=== PATIENT | female | born 2005 | race Hispanic/Latino ===

== ENCOUNTER 2023-05-13 13:04 | Day surgery (SDC) | payer OTHER ==
[2023-05-13] MEDS ORDERED: Ondansetron PF 4 MG/2 ML Vial IVP PRN (13:37)
[2023-05-13] MEDS ORDERED: hydrALAZINE 20 MG/ML VIAL SLOW IVP PRN (13:37)
[2023-05-13] MEDS ORDERED: Promethazine HCl 25 MG/ML VIAL IM PRN (13:37)
[2023-05-13 13:38] VITALS: BMI 43.0
[2023-05-13 14:37] LABS: Bilirubin Neg (Negative); Blood, Urine 25 (Negative); Clarity Clear (Clear); Glucose, Urine (Dipstick) Normal (Negative); Ketone, Urine Negative (Negative); Leukocyte Negative (Negative); Nitrite Negative (Negative); Protein, Urine (Dipstick) 15 mg/dl (Neg-Trace); Specific Gravity, Urine 1.015 (1.005-1.030); Urobilinogen Normal mg/dL (Less than 2); pH, Urine 6.5 (5.0-9.0)
[2023-05-13 14:58] LABS: Bacteria/HPF Rare-Few HPF (None Seen); CAUTI Indications for Culture Dysuria,urgency,freq; Mucous/LPF 2+ LPF (<2+); Squamous Epithelial 0-3 HPF (0-3); Urine Culture Reflex No No; WBC/HPF 0-3 HPF (0-3)
== END 2023-05-13 14:23 | disposition home or self-care (01) ==
LOC: CSHLD/OP 13:04
PROVIDERS: ATTEND Family Medicine
DX: O99.612 Diseases of the digestive system complicating pregnancy, second trimester (principal); K59.00 Constipation, unspecified; Z3A.25 25 weeks gestation of pregnancy
CPT/HCPCS: 81001

== ENCOUNTER 2023-08-02 15:20 | Day surgery (SDC) | payer OTHER ==
[2023-08-02] MEDS ORDERED: hydrALAZINE 20 MG/ML VIAL SLOW IVP PRN (15:54)
[2023-08-02 15:59] VITALS: BMI 42.4
[2023-08-02] MEDS ORDERED: Lactated Ringer's 1,000 ML IV SCH (16:00)
[2023-08-02] MEDS ORDERED: Acetaminophen 500 MG TAB PO SCH (16:45)
== END 2023-08-02 18:50 | disposition home health service (06) ==
LOC: CSHERS 15:20 → CSHLD/OP 18:50
PROVIDERS: ATTEND Family Medicine
DX: O47.1 False labor at or after 37 completed weeks of gestation (principal); O99.213 Obesity complicating pregnancy, third trimester; E66.9 Obesity, unspecified; Z90.89 Acquired absence of other organs; Z3A.37 37 weeks gestation of pregnancy
CPT/HCPCS: 96360; 99283

== ENCOUNTER 2023-08-17 03:51 | Day surgery (SDC) | payer OTHER ==
[2023-08-17] MEDS ORDERED: hydrALAZINE 20 MG/ML VIAL SLOW IVP PRN (04:02)
[2023-08-17 04:13] VITALS: BMI 42.4
[2023-08-17 04:48] LABS: Fetal Membranes Rupture No Membranes Rupture (No Rupture)
== END 2023-08-17 08:00 | disposition home or self-care (01) ==
LOC: CSHLD/OP 03:51
PROVIDERS: ATTEND Family Medicine
DX: O99.891 Other specified diseases and conditions complicating pregnancy (principal); O99.213 Obesity complicating pregnancy, third trimester; Z90.89 Acquired absence of other organs; Z79.899 Other long term (current) drug therapy; Z3A.39 39 weeks gestation of pregnancy
CPT/HCPCS: 84112; 99283

== ENCOUNTER 2023-08-19 19:09 | Inpatient (IN) | payer OTHER ==
[2023-08-19 19:36] VITALS: BMI 43.0
[2023-08-19] MEDS ORDERED: Promethazine HCl 25 MG/ML VIAL IM PRN (20:02)
[2023-08-19] MEDS ORDERED: fentaNYL 50 mcg/mL 1 mL Vial SLOW IVP PRN (20:02)
[2023-08-19] MEDS ORDERED: Lidocaine 1% (PF) 30 ML VIAL SC PRN (20:02)
[2023-08-19] MEDS ORDERED: hydrALAZINE 20 MG/ML VIAL SLOW IVP PRN (20:02)
[2023-08-19] MEDS ORDERED: Acetaminophen 500 MG TAB PO PRN (20:02)
[2023-08-19] MEDS ORDERED: Ondansetron PF 4 MG/2 ML Vial IVP PRN (20:02)
[2023-08-19] MEDS ORDERED: Carboprost 250 MCG/ML AMP IM PRN (20:02)
[2023-08-19] MEDS ORDERED: Methylergonovine 0.2 MG/ML VIAL IM PRN (20:02)
[2023-08-19] MEDS ORDERED: Misoprostol 200 MCG TAB PR PRN (20:02)
[2023-08-19] MEDS ORDERED: Tranexamic Acid 1,000 MG/10 ML VIAL IVP PRN (20:02)
[2023-08-19] MEDS ORDERED: Diphenoxylate HCl/Atropine Tablet PO PRN (20:02)
[2023-08-19] MEDS ORDERED: HYDROcodone/Acetaminophen 5/325 mg Tablet PO PRN (20:05)
[2023-08-19] MEDS ORDERED: Ibuprofen 800 MG TAB PO PRN (20:05)
[2023-08-19] MEDS ORDERED: Oxytocin 30 units/NS 500 ML 500 ML IV SCH ×3 (20:15)
[2023-08-19] MEDS: Misoprostol 100 MCG TAB VAG SCH (20:35)
[2023-08-19 20:37] LABS: Hematocrit 38.3 % (34.9-44.5); Hemoglobin 12.9 g/dL (12.0-15.5); Mean Corpuscular HGB CONC 33.7 g/dL (32.0-36.0); Mean Corpuscular Hemoglobin 28.2 pg (27.0-33.0); Mean Corpuscular Volume 83.8 fl (81.6-98.3); Mean Platelet Volume 11.8 fl (7.4-10.4); Platelet Count 346 10x3/uL (150-450); RBC Distribution Width 14.2 % (11.5-14.5); Red Blood Cell (RBC) Count 4.57 10x6/uL (3.90-5.03); White Blood Cell (WBC) Count 7.9 10x3/uL (3.5-10.5)
[2023-08-19 22:13] LABS: HBSAg Index 0.16 S/CO (0-0.99); Hep B Surf Ag - L&D Non-Reactive S/CO (NonReactive)
[2023-08-19 22:14] LABS: Syphilis Antibody Nonreactive (Nonreactive); Syphilis Antibody Index 0.13 S/CO (<1.00 Non-Reactive)
[2023-08-20] MEDS: Misoprostol 100 MCG TAB VAG SCH ×3 (00:03→07:41)
[2023-08-20] MEDS ORDERED: Penicillin G Potassium 5 MILL.UNITS in Sodium Chloride 0.9% 100 ML IVPB SCH (02:00)
[2023-08-20] MEDS: Penicillin G 2.5 MILL.units 2.5 MILL.UNITS in Premix 1 BAG IVPB SCH ×3 (07:37→18:21)
[2023-08-20] MEDS ORDERED: Bupivacaine 0.25% HCL 30 ML VIAL ONE (10:00)
[2023-08-20] MEDS ORDERED: fentaNYL/Ropivacaine Epidural 100 ML ONE (13:58)
[2023-08-20] MEDS ORDERED: Naloxone HCl 0.4 mg/ml Vial IVP PRN ×4 (14:37→20:38)
[2023-08-20] MEDS ORDERED: Promethazine HCl 25 MG/ML VIAL IM PRN ×2 (14:37→20:38)
[2023-08-20] MEDS ORDERED: Ondansetron PF 4 MG/2 ML Vial IVP PRN ×3 (14:37→20:38)
[2023-08-20] MEDS ORDERED: ePHEDrine Sulfate 50 MG/10 ML VIAL SLOW IVP PRN (14:37)
[2023-08-20] MEDS ORDERED: Acetaminophen 325 MG TAB PO PRN (14:37)
[2023-08-20] MEDS ORDERED: Moisturizing Cream (Eucerin) 113 GM JAR TOP PRN ×2 (14:37→20:38)
[2023-08-20] MEDS ORDERED: Lactated Ringer's 500 ML IV PRN (14:37)
[2023-08-20] MEDS ORDERED: diphenhydrAMINE 50 MG/ML VIAL IVP PRN ×2 (14:37→20:38)
[2023-08-20] MEDS ORDERED: fentaNYL 2 mcg/Ropivacaine 0.2% Epidural 100 ML CADD EPIDURAL SCH (14:45)
[2023-08-20] MEDS ORDERED: Communication Order-Pharmacy FS SCH ×2 (14:45→20:45)
[2023-08-20] MEDS ORDERED: CEFAZOLIN 2 GM VIAL ONE (20:33)
[2023-08-20] MEDS ORDERED: Famotidine/PF 20 mg/2ml Vial SLOW IVP PRN (20:36)
[2023-08-20] MEDS ORDERED: Bicitra 30 ML UDCUP PO PRN (20:36)
[2023-08-20] MEDS ORDERED: Ketorolac Tromethamine 30 MG (1 mL) VIAL IVP PRN (20:38)
[2023-08-20] MEDS ORDERED: Naloxone HCl 0.4 mg/ml Vial IV PRN (20:38)
[2023-08-20] MEDS ORDERED: Morphine 4 MG/ML VIAL SLOW IVP PRN (20:38)
[2023-08-20] MEDS ORDERED: Promethazine HCl 25 MG SUPP PR PRN (20:38)
[2023-08-20] MEDS ORDERED: Meperidine HCl/PF 25 MG (1 mL) VIAL SLOW IVP PRN (20:38)
[2023-08-20] MEDS ORDERED: fentaNYL 50 mcg/mL 1 mL Vial SLOW IVP PRN (20:38)
[2023-08-20] MEDS ORDERED: Ketorolac Tromethamine 30 MG (1 mL) VIAL IVP SCH (20:45)
[2023-08-20] MEDS ORDERED: CEFAZOLIN 2 GM in Sodium Chloride 0.9% 100 ML IVPB SCH (20:45)
[2023-08-20] MEDS ORDERED: Azithromycin 500 MG in Sodium Chloride 0.9% 250 ML 250 ML IVPB SCH (20:45)
[2023-08-20] MEDS ORDERED: Azithromycin 500 MG VIAL ONE (20:49)
[2023-08-20] MEDS ORDERED: Dexamethasone 4 mg/ml Vial ONE (20:52)
[2023-08-20] MEDS ORDERED: PHENYLEPHRINE-NS 100 MCG/ML 10 ML SYRINGE ONE (20:52)
[2023-08-20] MEDS ORDERED: Lidocaine 2% MPF 10 ML AMP (For Epidural Use) ONE (20:52)
[2023-08-20] MEDS ORDERED: Oxytocin 10 UNITS/ML VIAL ONE ×3 (20:52→21:51)
[2023-08-20] MEDS ORDERED: Morphine PF 10 MG/10 ML VIAL ONE (20:52)
[2023-08-20] MEDS ORDERED: Ondansetron PF 4 MG/2 ML Vial ONE (20:52)
[2023-08-20] MEDS ORDERED: EPINEPHrine 1 MG/ML VIAL ONE (20:52)
[2023-08-20] MEDS ORDERED: ePHEDrine Sulfate 50 MG/10 ML VIAL ONE (20:52)
[2023-08-20 21:37] LABS: Analyzer IN Cardio CS NICU; RapidComm Collect By CBN
[2023-08-20 21:38] LABS: Analyzer IN Cardio CS NICU; RapidComm Collect By CBN; pH (Cord, venous) 7.326 (7.250-7.350)
[2023-08-21] MEDS ORDERED: hydrALAZINE 20 MG/ML VIAL SLOW IVP PRN (01:15)
[2023-08-21] MEDS ORDERED: Boostrix 0.5 ML (Tdap) VIAL (>/=7 yrs of age) IM ONE (01:15)
[2023-08-21] MEDS ORDERED: diphenhydrAMINE 25 MG CAP PO PRN (01:15)
[2023-08-21] MEDS ORDERED: Ondansetron PF 4 MG/2 ML Vial IVP PRN (01:15)
[2023-08-21] MEDS ORDERED: Lanolin Ointment 7 GM TUBE TOP PRN (01:15)
[2023-08-21] MEDS ORDERED: Bisacodyl 10 MG SUPP PR PRN (01:15)
[2023-08-21] MEDS ORDERED: Promethazine HCl 25 MG/ML VIAL IM PRN (01:15)
[2023-08-21] MEDS ORDERED: Oxytocin 30 units/NS 500 ML 500 ML IV SCH (01:30)
[2023-08-21 03:20] LABS: Hematocrit 33.3 % (34.9-44.5); Mean Corpuscular Hemoglobin 27.9 pg (27.0-33.0); Mean Corpuscular Volume 84.5 fl (81.6-98.3); Mean Platelet Volume 11.4 fl (7.4-10.4); Platelet Count 276 10x3/uL (150-450); RBC Distribution Width 13.8 % (11.5-14.5); Red Blood Cell (RBC) Count 3.94 10x6/uL (3.90-5.03); White Blood Cell (WBC) Count 12.6 10x3/uL (3.5-10.5)
[2023-08-21] MEDS: Ketorolac Tromethamine 30 MG (1 mL) VIAL IVP SCH ×3 (05:49→18:03)
[2023-08-21] MEDS: Ferrous Sulfate 325 MG TAB PO SCH ×2 (07:09→22:07)
[2023-08-21] MEDS: Penicillin G 2.5 MILL.units 2.5 MILL.UNITS in Premix 1 BAG IVPB SCH (07:10)
[2023-08-21] MEDS ORDERED: Meperidine HCl/PF 25 MG (1 mL) VIAL IM PRN (08:45)
[2023-08-21] MEDS: Docusate 100 MG CAP PO SCH ×3 (08:55→21:58)
[2023-08-21] MEDS: Simethicone Chewable 80 MG TAB PO PRN (08:55)
[2023-08-21] MEDS: Prenatal Vitamin 1 TAB PO SCH ×2 (08:55→08:58)
[2023-08-21] MEDS: HYDROcodone/Acetaminophen 5/325 mg Tablet PO PRN ×2 (16:33→20:27)
[2023-08-21] MEDS: Ibuprofen 800 MG TAB PO SCH (21:58)
[2023-08-22] MEDS: HYDROcodone/Acetaminophen 5/325 mg Tablet PO PRN ×6 (00:31→21:38)
[2023-08-22] MEDS: Ibuprofen 800 MG TAB PO SCH ×3 (05:46→21:39)
[2023-08-22] MEDS: Docusate 100 MG CAP PO SCH ×2 (09:14→21:38)
[2023-08-22] MEDS: Prenatal Vitamin 1 TAB PO SCH (09:14)
[2023-08-22] MEDS: Ferrous Sulfate 325 MG TAB PO SCH ×2 (10:57→19:23)
[2023-08-23] MEDS: HYDROcodone/Acetaminophen 5/325 mg Tablet PO PRN ×4 (01:14→13:29)
[2023-08-23] MEDS: Ibuprofen 800 MG TAB PO SCH ×2 (05:24→13:28)
[2023-08-23] MEDS: Ferrous Sulfate 325 MG TAB PO SCH (07:09)
[2023-08-23] MEDS: Docusate 100 MG CAP PO SCH (09:02)
[2023-08-23] MEDS: Simethicone Chewable 80 MG TAB PO PRN (09:02)
[2023-08-23] MEDS: Prenatal Vitamin 1 TAB PO SCH (09:02)
[2023-08-23 13:29] LABS: #Eosinphils 0.1 10x3/uL (0.0-0.5); #Monocytes 0.2 10x3/uL (0.0-1.1); #Neutrophils 10.3 10x3/uL (1.5-8.4); %Basophils 0.1 % (0.0-2.0); %Eosinophils 0.6 % (0.0-6.0); %Lymphocytes 2.8 % (18.0-47.0); %Monocytes 2.1 % (0.0-10.0); %Neutrophils 94.1 % (40.0-75.0); Hematocrit 29.1 % (34.9-44.5); Hemoglobin 9.6 g/dL (12.0-15.5); Mean Corpuscular Hemoglobin 28.5 pg (27.0-33.0); Mean Corpuscular Volume 86.4 fl (81.6-98.3); Mean Platelet Volume 11.3 fl (7.4-10.4); Platelet Count 281 10x3/uL (150-450); RBC Distribution Width 14.3 % (11.5-14.5); Red Blood Cell (RBC) Count 3.37 10x6/uL (3.90-5.03); White Blood Cell (WBC) Count 10.9 10x3/uL (3.5-10.5)
[2023-08-23 13:50] VITALS: BP 100/55; TEMP 98.9
== END 2023-08-23 13:55 | disposition home or self-care (01) | DRG 788 ==
LOC: CSHLD 19:09 → CSHPP 08-21 00:44
PROVIDERS: ADMIT Family Medicine; ATTEND Family Medicine
PROC: 10D00Z1 Extraction of Products of Conception, Low, Open Approach (ICD-10-PCS; principal; 2023-08-20)
PROC: 3E0P7VZ Introduction of Hormone into Female Reproductive, Via Natural or Artificial Opening (ICD-10-PCS; 2023-08-20)
PROC: 10H07YZ Insertion of Other Device into Products of Conception, Via Natural or Artificial Opening (ICD-10-PCS; 2023-08-20)
PROC: 10907ZC Drainage of Amniotic Fluid, Therapeutic from Products of Conception, Via Natural or Artificial Opening (ICD-10-PCS; 2023-08-20)
DX: O99.214 Obesity complicating childbirth (principal); Z3A.40 40 weeks gestation of pregnancy; Z37.0 Single live birth; O48.0 Post-term pregnancy; O99.824 Streptococcus B carrier state complicating childbirth; O76 Abnormality in fetal heart rate and rhythm complicating labor and delivery; E66.01 Morbid (severe) obesity due to excess calories
CPT/HCPCS: 36415; 82805; 84112; 85025; 85027; 86780; 86850; 86900; 86901; 87340; 99283; J0171; J0456; J1100; J1200; J1885; J2274; J2405; J2540; J2550; J2590; J3490; S0020